=== PATIENT | female | born 1985 | race Two or more races ===

== ENCOUNTER 2020-01-15 16:10 | Emergency (ER) | payer OTHER ==
[~2020-01-15] VITALS: Ht 144.8 cm; Wt 54.4 kg
== END 2020-01-15 17:02 | disposition home or self-care (01) ==
LOC: ER 16:10
DX: M62.830 Muscle spasm of back (principal); M54.2 Cervicalgia

== ENCOUNTER 2020-08-15 08:51 | Outpatient (CLI) | payer OTHER | END 2020-08-15 09:03 | disposition home or self-care (01) | LOC: RX STUDY 08:51 | PROVIDERS: ATTEND Specialist | DX: N84.0 Polyp of corpus uteri (principal); O11.2 Pre-existing hypertension with pre-eclampsia, second trimester; N89.8 Other specified noninflammatory disorders of vagina ==